=== PATIENT | male | born 1980 | race Caucasian/White ===

== ENCOUNTER 2020-11-13 09:03 | Emergency (ER) | payer SELFPAY ==
[~2020-11-13] VITALS: Ht 172.7 cm; Wt 86.7 kg
--- NOTE | 2020-11-13 09:26 | NUR ---
THIS IS A 40YO M W/ C/O N/V AND EPIGASTRIC PAIN X5 DAYS. PT DENIES SYMPTOMS. REPORTS HX OF KIDNEY STONES AND PANCREATITIS. DENIES HOME MEDS. PT RESTING ON GURNEY W/ CALL LIGHT IN REACH AND SIDE RAILS UPX2, VSS, NADN. PROVIDED W/ WARM BLANKET FOR COMFORT. TAWNY LAN AT BEDSIDE FOR ED EVAL.
[2020-11-13] MEDS ORDERED: ONDANSETRON 2MG/ML, 2ML ONE ×2 (09:29→10:58)
[2020-11-13] MEDS ORDERED: MORPHINE SULFATE 4 MG/ML, 1ML ONE ×2 (09:30→10:58)
[2020-11-13] MEDS: MORPHINE SULFATE 4 MG/ML, 1ML IVPush PRN ×2 (09:56→11:05)
--- NOTE | 2020-11-13 09:56 | NUR ---
PIV STARTED, LABS DRAWN, PT MEDICATED PER EMAR. PT PROVIDED W/ URINAL AND EDUCATED ON NEED FOR SAMPLE. PT RESTING ON Digital H2O W/ CALL LIGHT IN REACH AND SIDE RAILS UPX2. RESP EVEN AND UNLABORED,
[2020-11-13 09:59] LABS: MEAN CORPUSCULAR HEMOGLOBIN 31.6 pg (27.5-34.5); MEAN CORPUSCULAR HGB CONC 34.3 g/dL (33.2-36.2); MEAN PLATELET VOLUME 7.6 fL (7.4-10.4); PLATELET COUNT 428 x10^3/uL (130-400); RED BLOOD COUNT 5.11 x10^6/uL (4.38-5.82); RED CELL DISTRIBUTION WIDTH 14.2 % (9.4-14.8)
[2020-11-13] MEDS ORDERED: ONDANSETRON 2MG/ML, 2ML IVPush ONE ×2 (10:00→10:30)
[2020-11-13] MEDS ORDERED: SODIUM CHLORIDE 0.9% 1,000ML IVBOLUS ONE (10:00)
--- NOTE | 2020-11-13 10:04 | NUR ---
URINE COLLECTED AND SENT TO LAB.
[2020-11-13 10:11] LABS: ALANINE AMINOTRANSFERASE 51 U/L (12-78); ALBUMIN 3.7 g/dL (3.4-5.0); ANION GAP 6 mmol/L (5-15); CALCIUM 9.2 mg/dL (8.5-10.1); CHLORIDE 109 mmol/L (98-107); CREATININE 0.95 mg/dL (0.7-1.3)
[2020-11-13 10:12] LABS: MICROSCOPIC NOT IND
[2020-11-13 10:13] LABS: ALKALINE PHOSPHATASE 59 U/L (45-117); BILIRUBIN,TOTAL 0.4 mg/dL (0.2-1.0)
[2020-11-13] MEDS ORDERED: SODIUM CHLORIDE FLUSH 10ML SYR IVF ONE ×2 (10:30→11:30)
[2020-11-13] MEDS ORDERED: MORPHINE SULFATE 4 MG/ML, 1ML IVPush PRN (10:30)
[2020-11-13 10:31] LABS: MD YES
[2020-11-13 10:33] LABS: BANDS%(MANUAL) 1 % (0-7); BASOS% (MANUAL) 3 % (0-1); EOS% (MANUAL) 8 % (1-7); LYMPHS% (MANUAL) 26 % (22-44); METAMYELOCYTES% (MANUAL) 2 % (0-1); MONOS% (MANUAL) 6 % (2-9); MYELOCYTES% (MANUAL) 1 % (0-0); SEGS% (MANUAL) 53 % (42-75)
[2020-11-13 10:35] LABS: <RBC MORPHOLOGY> NORMAL; TOXIC GRAN 1+
[2020-11-13] MEDS ORDERED: MAALOX/HYOSCYAMINE/LIDOCAINE 45 ML BTL ONE (10:58)
--- NOTE | 2020-11-13 11:05 | NUR ---
US IN ROOM.
--- NOTE | 2020-11-13 11:28 | NUR ---
ALL TESTS RESULTED. PT IS UP FOR RECHECK AT THIS TIME.
[2020-11-13] MEDS ORDERED: MAALOX/HYOSCYAMINE/LIDOCAINE 45 ML BTL PO ONE (11:30)
[2020-11-13 12:02] LABS: <PLATELET ESTIMATE> INCREASED
[2020-11-13 12:03] LABS: <PLT MORPHOLOGY> NORMAL PLT MORPH
[2020-11-13 12:04] VITALS: BP 117/73
--- NOTE | 2020-11-13 12:12 | NUR ---
Patient given discharge instructions and they have confirmed that they understand the instructions. Patient ambulatory with steady gait.
== END 2020-11-13 12:31 | disposition home or self-care (01) ==
LOC: ED 12:23
DX: K29.00 Acute gastritis without bleeding (principal); R11.2 Nausea with vomiting, unspecified
CPT/HCPCS: 36415; 76700; 80053; 81003; 83690; 85025; 93005; 96361; 96374; 96375; 96376; 99285; J2270; J2405; J7030